=== PATIENT | male | born 1975 | race Caucasian/White ===

== ENCOUNTER 2017-01-20 10:34 | Emergency (ER) | payer OTHER ==
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
[2017-01-20] MEDS ORDERED: Diphtheria,Pertussis(Acell),Tetanus Vaccine 0.5 ML Syringe IM ONE (10:55)
[2017-01-20] MEDS ORDERED: Ketorolac 60 MG/2 ML SDV IM ONE (11:29)
--- NOTE | 2017-01-20 12:15 | CR ---
EXAMINATION: Left wrist HISTORY: Pain COMPARISON: None TECHNIQUE: 2 views FINDINGS/IMPRESSION: There is no acute osseous abnormality, dislocation, or fracture. Radiocarpal ali gnment is preserved. Joint spaces appear normal.
--- NOTE | 2017-01-20 12:16 | CR ---
EXAMINATION: Two-view chest (PA and Lateral views). HISTORY: Shortness of breath. FINDINGS: The trachea is midline. The cardiomediastinal silhouette is within normal limits. No pulmonary infilt rates, effusions or pneumothorax. There is calcified granuloma within the left upper lung. Mild bibas ilar atelectasis. Osseous structures appear unremarkable. IMPRESSION: No acute cardiopulmonary process.
--- NOTE | 2017-01-20 12:20 | CR ---
EXAMINATION: Left elbow HISTORY: Pain COMPARISON: None TECHNIQUE: 2 views FINDINGS/IMPRESSION: There is no acute osseous abnormality, dislocation, or fracture. No joint effusi on or soft tissue swelling. Bone mineralization is normal.
--- NOTE | 2017-01-20 12:21 | CR ---
EXAMINATION: Cervical spine HISTORY: Pain COMPARISON: None TECHNIQUE: 3 views FINDINGS: The cervical spinal alignment is normal. The vertebral body heights and disc spaces appear well-maintained. There is no fracture or dislocation. Bone mineralization is normal. The prevertebral soft tissues are normal. Minimal marginal osteophytes noted. IMPRESSION: 1. Grossly unremarkable cervical spine.
--- NOTE | 2017-01-20 12:22 | CR ---
EXAMINATION: Left knee HISTORY: Pain COMPARISON: None TECHNIQUE: 3 views FINDINGS/IMPRESSION: There is no acute osseous abnormality, dislocation, or fracture. Joint spaces an d bone mineralization is normal. No soft tissue swelling or joint effusion.
== END 2017-01-20 13:10 | disposition home or self-care (01) ==
LOC: MW.ED 10:34
DX: S80.02XA Contusion of left knee, initial encounter (principal); S80.812A Abrasion, left lower leg, initial encounter; S80.811A Abrasion, right lower leg, initial encounter; V83.5XXA Driver of special industrial vehicle injured in nontraffic accident, initial encounter
CPT/HCPCS: 71020; 71020-26; 72040; 72040-26; 73070-26-LT; 73070-LT; 73100-26-LT; 73100-LT; 73562-26-LT; 73562-LT; 90471; 90715; 93005; 99284; 99284-25